=== PATIENT | female | born 1960 | race Caucasian/White ===

== ENCOUNTER 2017-12-02 05:32 | Inpatient (IN) | payer OTHER ==
[2017-12-02] MEDS ORDERED: CEFAZOLIN 2 GM/50 ML (PMX) 50 ML IVPB (06:00)
[2017-12-02] MEDS: LACTATED RINGER'S 1,000 ML IV* (06:05)
[2017-12-02] MEDS: VANCOMYCIN 1 GM (PMX) 250 ML IVPB ×2 (06:05→18:13)
[2017-12-02] MEDS ORDERED: FENTAnyl 50 MCG/ML VIAL (06:23)
[2017-12-02] MEDS ORDERED: MIDAZOLAM 1 MG/ML 2 ML INJ (06:23)
[2017-12-02] MEDS ORDERED: GLYCOPYRROLATE 0.4 MG INJ (06:23)
[2017-12-02] MEDS ORDERED: PROPOFOL 20 ML (06:23)
[2017-12-02] MEDS ORDERED: ROCURONIUM 50 MG INJ ×2 (06:23→07:00)
[2017-12-02] MEDS ORDERED: NEOSTIGMINE 3 MG/3 ML SYRINGE (06:23)
[2017-12-02] MEDS ORDERED: DEXAMETHASONE 4 MG/ML 1 ML INJ (06:24)
[2017-12-02] MEDS ORDERED: ONDANSETRON 4 MG INJ (06:24)
[2017-12-02] MEDS ORDERED: EPHEDrine SULFATE 50 MG/5 ML SYG IV (06:30)
[2017-12-02] MEDS ORDERED: ATROPINE 1 MG/10 ML SYRINGE IV (06:30)
[2017-12-02] MEDS ORDERED: MEPERIDINE 25 MG INJ IV (06:30)
[2017-12-02] MEDS ORDERED: HYDROmorphONE (0.2 MG/ML) 10ML SYG IV ×2 (06:30)
[2017-12-02] MEDS ORDERED: MIDAZOLAM 1 MG/ML 2 ML INJ IV (06:30)
[2017-12-02] MEDS ORDERED: FENTAnyl 50 MCG/ML VIAL IV ×2 (06:30)
[2017-12-02] MEDS ORDERED: LABETALOL HCL 20MG INJ IV (06:30)
[2017-12-02] MEDS ORDERED: morphine (1 MG/ML) 10ML SYRINGE IV ×3 (06:30)
[2017-12-02] MEDS ORDERED: OXYCODONE/ACETAMINOPHEN (5/325) TAB PO ×2 (06:30)
[2017-12-02] MEDS ORDERED: hydrALAzine 20 MG INJ IV (06:30)
[2017-12-02] MEDS ORDERED: DIPHENHYDRAMINE 50 MG INJ IV (06:30)
[2017-12-02] MEDS ORDERED: LIDOCAINE 100 MG SYRINGE (07:00)
[2017-12-02] MEDS ORDERED: LABETALOL HCL 20MG INJ (07:24)
[2017-12-02] MEDS ORDERED: hydrALAzine 20 MG INJ (07:24)
[2017-12-02] MEDS: GELATIN SIZE 100 SPONGE (09:56)
[2017-12-02] MEDS: BUPIVACAINE 0.25% (MPF) 30 ML INJ (09:56)
[2017-12-02] MEDS: THROMBIN 5000 UNIT VIAL (09:57)
[2017-12-02] MEDS: POLYMYXIN/BACITRACIN 1L IRRIG IRR (09:57)
[2017-12-02] MEDS: ONDANSETRON 4 MG INJ IV ×3 (12:28→21:40)
[2017-12-02] MEDS: HYDROmorphONE (0.2 MG/ML) 10ML SYG IV ×2 (12:28→12:35)
[2017-12-02] MEDS ORDERED: HYDROCODONE/APAP (5/325) TAB PO (12:30)
[2017-12-02] MEDS ORDERED: ZOLPIDEM 5 MG TAB PO (12:30)
[2017-12-02] MEDS ORDERED: AL HYDROX/MG HYDROX/SIMETH 30 ML CUP PO (12:30)
[2017-12-02] MEDS ORDERED: NACL 0.9% 3 ML SYG IV (12:30)
[2017-12-02] MEDS ORDERED: DIAZEPAM 5 MG/ML SYG IM (12:30)
[2017-12-02] MEDS ORDERED: NALOXONE (0.4 MG/ML) INJ IV (12:30)
[2017-12-02] MEDS ORDERED: DIPHENHYDRAMINE 50 MG CAP PO (12:30)
[2017-12-02] MEDS ORDERED: PROCHLORPERAZINE 10 MG TAB PO (12:30)
[2017-12-02] MEDS: HYDROmorphONE 0.2 MG/ML PCA IV (12:52)
[2017-12-02] MEDS: DEXTROSE 5%-0.45% NACL 1,000 ML IV ×2 (16:01→22:08)
[2017-12-02] MEDS ORDERED: PANTOPRAZOLE 40 MG INJ (21:20)
[2017-12-02] MEDS ORDERED: MAGNESIUM HYDROXIDE 30ML CUP (21:21)
[2017-12-02] MEDS: MAGNESIUM HYDROXIDE 30ML CUP PO (21:23)
[2017-12-02] MEDS: PANTOPRAZOLE 40 MG INJ IV (21:23)
[2017-12-02] MEDS: TRIMETHOBENZAMIDE 100 MG/ML VIAL IM (21:40)
[2017-12-02 21:45] LABS: TROPONIN-I 0.081 ng/ml (0.00-0.12)
[2017-12-02] MEDS: morphine 1 MG/ML 30 ML (PCA) IV (22:59)
[2017-12-02] MEDS: traZODone 100 MG TAB PO (23:58)
[2017-12-02] MEDS: RANITIDINE 150 MG TAB PO (23:58)
[2017-12-02] MEDS: ATORVASTATIN 10 MG TAB PO (23:58)
[2017-12-03] MEDS: CEPASTAT LOZENGE MT (02:57)
[2017-12-03] MEDS: DEXTROSE 5%-0.45% NACL 1,000 ML IV ×2 (02:57→15:44)
[2017-12-03] MEDS ORDERED: ONDANSETRON 4 MG INJ IV (03:30)
[2017-12-03 03:45] LABS: ADD MAN DIFF? NO
[2017-12-03 04:06] LABS: WHITE BLOOD COUNT 8.8 10^3/ul (4.8-10.8)
[2017-12-03 04:06] LABS: BASOPHILS % 0.1 % (0.0-2.0); HEMATOCRIT 31.4 % (37.0-47.0); HEMOGLOBIN 10.8 g/dl (12.0-16.0); LYMPHOCYTES # 1.5 10^3/ul (0.8-2.9); LYMPHOCYTES % 16.8 % (15.0-51.0); MEAN CORPUSCULAR HEMOGLOBIN 30.6 pg (29.0-33.0); MEAN CORPUSCULAR HGB CONC 34.4 g/dl (32.0-37.0); MEAN PLATELET VOLUME 10.9 fl (7.4-10.4); MONOCYTE # 0.6 10^3/ul (0.3-0.9); MONOCYTES % 6.9 % (0.0-11.0); NEUTROPHIL # 6.7 10^3/ul (1.6-7.5); NEUTROPHILS % 75.9 % (39.0-77.0); PLATELET COUNT 222 10^3/UL (140-415); RED BLOOD COUNT 3.53 10^6/ul (4.20-5.40); RED CELL DISTRIBUTION WIDTH 14.1 % (11.5-14.5)
[2017-12-03 04:08] LABS: ALANINE AMINOTRANSFERASE 37 IU/L (13-69); ALBUMIN 3.9 g/dl (3.3-4.9); ALKALINE PHOSPHATASE 70 IU/L (42-121); ANION GAP 15 (8-16); ASPARTATE AMINO TRANSFERASE 33 IU/L (15-46); BILIRUBIN,INDIRECT 0.2 mg/dl (0-1.1); BILIRUBIN,TOTAL 0.2 mg/dl (0.2-1.3); BLOOD UREA NITROGEN 14 mg/dl (7-20); CARBON DIOXIDE 29 mmol/L (21-31); CHLORIDE 95 mmol/L (97-110); CREATININE 0.93 mg/dl (0.44-1.00); GLUCOSE 159 mg/dl (70-220); POTASSIUM 3.9 mmol/L (3.5-5.1); SODIUM 135 mmol/L (135-144); TOTAL PROTEIN 6.5 g/dl (6.1-8.1)
[2017-12-03] MEDS: ONDANSETRON IV ×2 (04:12→09:59)
[2017-12-03] MEDS: DEXTROSE 5% IV ×2 (04:12→09:59)
[2017-12-03 04:19] LABS: TROPONIN-I 0.091 ng/ml (0.00-0.12)
[2017-12-03] MEDS: TRIMETHOBENZAMIDE 100 MG/ML VIAL IM ×4 (04:33→20:50)
[2017-12-03] MEDS: PANTOPRAZOLE 40 MG INJ IV ×2 (05:36→17:23)
[2017-12-03] MEDS: VANCOMYCIN 1 GM (PMX) 250 ML IVPB (05:37)
[2017-12-03] MEDS ORDERED: BETHANECHOL 25 MG TAB PO (08:00)
[2017-12-03] MEDS: BETHANECHOL 25 MG TAB PO ×2 (08:19→12:17)
[2017-12-03] MEDS: FLUTICASONE 0.05% 16 GM NAS SPRAY NASAL (08:48)
[2017-12-03] MEDS: ESCITALOPRAM 10 MG TAB PO (08:49)
[2017-12-03] MEDS: FERROUS SULFATE (EC) 325 MG TAB PO ×3 (08:49→20:50)
[2017-12-03] MEDS: LOSARTAN 50 MG TAB PO (08:49)
[2017-12-03] MEDS: DOCUSATE SODIUM 100 MG CAP PO ×2 (08:49→20:50)
[2017-12-03] MEDS: RANITIDINE 150 MG TAB PO ×2 (08:49→21:00)
[2017-12-03] MEDS: ASCORBIC ACID 500 MG TAB PO ×2 (08:49→20:51)
[2017-12-03] MEDS: LORATADINE 10 MG TAB PO (08:50)
[2017-12-03] MEDS: HYDROCODONE/APAP (5/325) TAB PO ×3 (10:02→19:30)
[2017-12-03 13:09] LABS: ADD UMIC YES; UR ASCORBIC ACID NEGATIVE (NEGATIVE); UR BACTERIA FEW /HPF (NONE SEEN); UR BILIRUBIN (Dip) NEGATIVE (NEGATIVE); UR BLOOD (Dip) 2+ mg/dL (NEGATIVE); UR CLARITY CLEAR (CLEAR); UR COLOR YELLOW (YELLOW); UR GLUCOSE (Dip) NEGATIVE (NEGATIVE); UR KETONES (Dip) NEGATIVE (NEGATIVE); UR LEUKOCYTE ESTERASE (Dip) NEGATIVE Leu/ul (NEGATIVE); UR NITRITE (Dip) NEGATIVE (NEGATIVE); UR RBC 25 /HPF (0-5); UR SPECIFIC GRAVITY (Dip) 1.017 (1.003-1.030); UR SQUAMOUS EPITHELIAL CELL FEW /HPF (FEW); UR TOTAL PROTEIN (Dip) NEGATIVE (NEGATIVE); UR UROBILINOGEN (Dip) NEGATIVE (NEGATIVE); UR WBC 4 /HPF (0-5)
[2017-12-03] MEDS: traZODone 100 MG TAB PO (20:50)
[2017-12-03] MEDS: ATORVASTATIN 10 MG TAB PO (20:50)
[2017-12-04] MEDS: DIAZEPAM 5 MG TAB PO (03:06)
[2017-12-04] MEDS: DEXTROSE 5% IV (03:11)
[2017-12-04] MEDS: ONDANSETRON IV (03:11)
[2017-12-04] MEDS: DEXTROSE 5%-0.45% NACL 1,000 ML IV (04:08)
[2017-12-04] MEDS: PANTOPRAZOLE 40 MG INJ IV (05:40)
[2017-12-04] MEDS: ACETAMINOPHEN 325 MG TAB PO (08:08)
[2017-12-04] MEDS: DOCUSATE SODIUM 100 MG CAP PO (09:26)
[2017-12-04] MEDS: HYDROCHLOROTHIAZIDE 25 MG TAB PO (09:27)
[2017-12-04] MEDS: RANITIDINE 150 MG TAB PO (09:27)
[2017-12-04] MEDS: ASCORBIC ACID 500 MG TAB PO (09:27)
[2017-12-04] MEDS: LORATADINE 10 MG TAB PO (09:27)
[2017-12-04] MEDS: FERROUS SULFATE (EC) 325 MG TAB PO ×2 (09:27→13:26)
[2017-12-04] MEDS: ESCITALOPRAM 10 MG TAB PO (09:27)
[2017-12-04] MEDS: LOSARTAN 50 MG TAB PO (09:28)
[2017-12-04] MEDS: FLUTICASONE 0.05% 16 GM NAS SPRAY NASAL (09:34)
[2017-12-04] MEDS: HYDROCODONE/APAP (5/325) TAB PO ×2 (10:46→14:28)
== END 2017-12-04 16:55 | disposition home or self-care (01) | DRG 473 ==
LOC: REC 05:32 → MS1 14:41
PROVIDERS: Orthopaedic Surgery
PROC: 0RG20A0 Fusion of 2 or more Cervical Vertebral Joints with Interbody Fusion Device, Anterior Approach, Anterior Column, Open Approach (ICD-10-PCS; principal; 2017-12-02 07:00)
PROC: 0RB30ZZ Excision of Cervical Vertebral Disc, Open Approach (ICD-10-PCS; 2017-12-02 07:00)
PROC: 0QB30ZZ Excision of Left Pelvic Bone, Open Approach (ICD-10-PCS; 2017-12-02 07:00)
DX: M50.121 Cervical disc disorder at C4-C5 level with radiculopathy (principal); I10 Essential (primary) hypertension; R20.2 Paresthesia of skin; E78.5 Hyperlipidemia, unspecified; F34.1 Dysthymic disorder; K21.9 Gastro-esophageal reflux disease without esophagitis; G47.00 Insomnia, unspecified
CPT/HCPCS: 72050; 80053; 81001; 82962; 84484; 85025; 86850; 86900; 86901; 86920; 87086; 93005; 97116; 97163; 97530

== ENCOUNTER 2019-07-27 05:13 | Inpatient (IN) | payer BC ==
[2019-07-27] MEDS: VANCOMYCIN 1 GM 250 ML IVPB (05:47)
[2019-07-27] MEDS: LACTATED RINGER'S 1,000 ML (ENTER RATE) IV (05:47)
[2019-07-27] MEDS ORDERED: BUPIVACAINE 0.25%/EPI (SDV) 10 ML INJ (06:52)
[2019-07-27] MEDS ORDERED: THROMBIN 5000 UNIT (RECOTHROM) VIAL (06:52)
[2019-07-27] MEDS ORDERED: GELATIN SIZE 100 SPONGE (06:52)
[2019-07-27] MEDS ORDERED: PROPOFOL 20 ML (06:59)
[2019-07-27] MEDS ORDERED: ETOMIDATE 20 MG INJ (06:59)
[2019-07-27] MEDS ORDERED: ROCURONIUM 50 MG INJ (06:59)
[2019-07-27] MEDS ORDERED: SUCCINYLCHOLINE CHLORIDE 100 MG/5 ML SYG IV (06:59)
[2019-07-27] MEDS ORDERED: LIDOCAINE 1% (MDV) 20 ML INJ (07:00)
[2019-07-27] MEDS ORDERED: MIDAZOLAM 1 MG/ML 2 ML INJ (07:00)
[2019-07-27] MEDS ORDERED: FAMOTIDINE 20 MG INJ (07:06)
[2019-07-27] MEDS ORDERED: DEXAMETHASONE 4 MG/ML 5 ML INJ (07:06)
[2019-07-27] MEDS ORDERED: ONDANSETRON 4 MG INJ ×2 (07:06→09:45)
[2019-07-27] MEDS ORDERED: SCOPOLAMINE 1.5 MG PATCH (07:07)
[2019-07-27] MEDS ORDERED: METOCLOPRAMIDE 10 MG INJ (07:07)
[2019-07-27] MEDS: POLYMYXIN/BACITRACIN 1L IRRIG (08:11)
[2019-07-27] MEDS: BUPIVACAINE 0.25% (MPF) 30 ML INJ (08:12)
[2019-07-27] MEDS ORDERED: SUGAMMADEX SODIUM 200 MG/2 ML VIAL IV (09:07)
[2019-07-27] MEDS ORDERED: FENTAnyl 50 MCG/ML VIAL ×2 (09:45→10:05)
[2019-07-27] MEDS ORDERED: HYDROmorphONE 1 MG/5 ML IV SYRINGE IV ×3 (09:45→10:00)
[2019-07-27] MEDS: DEXTROSE 5%-0.45% NACL 1,000 ML IV ×2 (09:46→20:10)
[2019-07-27] MEDS ORDERED: NALOXONE (0.4 MG/ML) INJ IV (10:00)
[2019-07-27] MEDS ORDERED: BETHANECHOL 25 MG TAB PO (10:00)
[2019-07-27] MEDS ORDERED: NACL 0.9% 3 ML SYG IV (10:00)
[2019-07-27] MEDS ORDERED: TRIMETHOBENZAMIDE 100 MG/ML VIAL IM (10:00)
[2019-07-27] MEDS ORDERED: FENTAnyl 50 MCG/ML VIAL IV (10:00)
[2019-07-27] MEDS ORDERED: CEPASTAT LOZENGE MT (10:00)
[2019-07-27] MEDS ORDERED: ZOLPIDEM 5 MG TAB PO (10:00)
[2019-07-27] MEDS ORDERED: DIAZEPAM 5 MG TAB PO (10:00)
[2019-07-27] MEDS ORDERED: ACETAMINOPHEN 325 MG TAB PO (10:00)
[2019-07-27] MEDS ORDERED: DIAZEPAM 10 MG/2 ML SYG IM (10:00)
[2019-07-27] MEDS ORDERED: AL HYDROX/MG HYDROX/SIMETH 30 ML CUP PO (10:00)
[2019-07-27] MEDS ORDERED: ONDANSETRON 4 MG INJ IV (10:00)
[2019-07-27] MEDS ORDERED: PROCHLORPERAZINE 10 MG TAB PO (10:00)
[2019-07-27] MEDS ORDERED: HYDROmorphONE 0.2 MG/ML PCA (10:04)
[2019-07-27] MEDS: HYDROmorphONE 0.2 MG/ML PCA IV ×2 (10:30→23:07)
[2019-07-27] MEDS: FENTAnyl 50 MCG/ML VIAL IV (10:35)
[2019-07-27] MEDS: ONDANSETRON 4 MG INJ IV (10:35)
[2019-07-27] MEDS: HYDROmorphONE 1 MG/5 ML IV SYRINGE IV (10:36)
[2019-07-27] MEDS: SOD CHLORIDE 0.9% 250 ML IV (11:03)
[2019-07-27] MEDS ORDERED: hydrOXYzine HCL 25 MG TAB PO (12:30)
[2019-07-27] MEDS: GABAPENTIN 300 MG CAP PO ×2 (13:00→20:11)
[2019-07-27] MEDS: RANITIDINE 150 MG TAB PO (20:11)
[2019-07-27] MEDS: traZODone 50 MG TAB PO (20:11)
[2019-07-27] MEDS: ATORVASTATIN 10 MG TAB PO (20:11)
[2019-07-27] MEDS: DIPHENHYDRAMINE 50 MG CAP PO (20:15)
[2019-07-28 05:19] LABS: HEMATOCRIT 33.5 % (37.0-47.0); HEMOGLOBIN 10.9 g/dl (12.0-16.0)
[2019-07-28 05:48] LABS: ANION GAP 7 (5-13); BLOOD UREA NITROGEN 9 mg/dl (7-20); CALCIUM 8.9 mg/dl (8.4-10.2); CARBON DIOXIDE 31 mmol/L (21-31); CHLORIDE 101 mmol/L (97-110); CREATININE 0.73 mg/dl (0.44-1.00); Estimated GFR > 60 mL/min (>60); GLUCOSE 159 mg/dl (70-220); POTASSIUM 4.5 mmol/L (3.5-5.1); SODIUM 139 mmol/L (135-144)
[2019-07-28] MEDS: DEXTROSE 5%-0.45% NACL 1,000 ML IV ×2 (06:07→13:15)
[2019-07-28] MEDS: PANTOPRAZOLE (EC) 40 MG TAB PO (06:11)
[2019-07-28] MEDS: LACTATED RINGER'S 1,000 ML (ENTER RATE) IV (07:00)
[2019-07-28] MEDS ORDERED: BETHANECHOL 25 MG TAB PO (08:00)
[2019-07-28] MEDS: ARIPIPRAZOLE 5 MG TAB PO (08:42)
[2019-07-28] MEDS: LOSARTAN 50 MG TAB PO (08:43)
[2019-07-28] MEDS: METOPROLOL (XL) 25 MG TAB PO (08:43)
[2019-07-28] MEDS: FERROUS SULFATE (EC) 325 MG TAB PO ×2 (08:43→13:15)
[2019-07-28] MEDS: ASCORBIC ACID 500 MG TAB PO (08:43)
[2019-07-28] MEDS: GABAPENTIN 300 MG CAP PO ×2 (08:43→13:15)
[2019-07-28] MEDS: ESCITALOPRAM 10 MG TAB PO (08:44)
[2019-07-28] MEDS: RANITIDINE 150 MG TAB PO (08:44)
[2019-07-28] MEDS: DOCUSATE SODIUM 100 MG CAP PO (08:44)
[2019-07-28] MEDS: FLUTICASONE 0.05% 16 GM NAS SPRAY NASAL (08:46)
[2019-07-28] MEDS ORDERED: NON-FORMULARY/PATIENT OWN MED (Omeprazole* 40 MG) PO (09:00)
[2019-07-28] MEDS ORDERED: ESCITALOPRAM 10 MG TAB PO (09:00)
[2019-07-28] MEDS: DIPHENHYDRAMINE 50 MG CAP PO (10:27)
[2019-07-28] MEDS: HYDROCODONE/APAP (5/325) TAB PO ×3 (10:27→18:38)
[2019-07-28 10:35] LABS: ADD UMIC YES; UR ASCORBIC ACID NEGATIVE (NEGATIVE); UR BILIRUBIN (Dip) NEGATIVE (NEGATIVE); UR BLOOD (Dip) 2+ mg/dL (NEGATIVE); UR CLARITY CLEAR (CLEAR); UR COLOR COLORLESS (YELLOW); UR GLUCOSE (Dip) NEGATIVE (NEGATIVE); UR KETONES (Dip) NEGATIVE (NEGATIVE); UR LEUKOCYTE ESTERASE (Dip) NEGATIVE Leu/ul (NEGATIVE); UR NITRITE (Dip) NEGATIVE (NEGATIVE); UR RBC 3 /HPF (0-5); UR SPECIFIC GRAVITY (Dip) 1.003 (1.003-1.030); UR TOTAL PROTEIN (Dip) NEGATIVE (NEGATIVE); UR UROBILINOGEN (Dip) NEGATIVE (NEGATIVE); UR WBC 1 /HPF (0-5)
== END 2019-07-28 19:00 | disposition home or self-care (01) | DRG 517 ==
LOC: REC 05:13 → MS1 11:25
PROC: 01NB0ZZ Release Lumbar Nerve, Open Approach (ICD-10-PCS; principal; 2019-07-27 07:00)
PROC: 01NR0ZZ Release Sacral Nerve, Open Approach (ICD-10-PCS; 2019-07-27 07:00)
DX: M48.061 Spinal stenosis, lumbar region without neurogenic claudication (principal); I10 Essential (primary) hypertension; K21.9 Gastro-esophageal reflux disease without esophagitis; F34.1 Dysthymic disorder; E78.5 Hyperlipidemia, unspecified; G47.00 Insomnia, unspecified
CPT/HCPCS: 72020; 80048; 81001; 85014; 85018; 86850; 86900; 86901; 86920; 87086; 88304; 88311; 97116; 97162; 97530